=== PATIENT | male | born 1965 | race Caucasian/White ===

== ENCOUNTER → 2018-09-30 | Outpatient (CLI) | payer OTHER ==
--- NOTE | 2018-10-01 04:03 | REP ---
Clinical: Chronic obstructive pulmonary disease . Comparison: None . Technique: PA and lateral. Findings: The mediastinum and cardiac silhouette are normal. The lung lindsey are clear and without acute consolidation, effusion, or pneumothorax. The skeletal structures are intact and normal. Impression: 1. No acute cardiopulmonary process. Electronically Signed by Ayaz Modi MD 10/01/2018 03:55 A
== END ==
LOC: M RAD 15:50
PROVIDERS: ATTEND Internal Medicine Pulmonary Disease
DX: J44.9 Chronic obstructive pulmonary disease, unspecified (principal)

== ENCOUNTER 2024-06-16 09:30 | Day surgery (SDC) | payer OTHER ==
[~2024-06-16] VITALS: Ht 172.7 cm; Wt 116.0 kg
[~2024-06-16 09:30] MED LIST: CARV6.25 PO; CLOP75TA2 PO; FARX1TAB3 PO; GLIP5TAB20 PO; LISI10TA22 PO; LORA-243 PO; LYRI150C PO; METF10004 PO; NITR0.4S14 SL; OMEP1CAP73 PO; PANT40TA29 PO; ROSU20TA86 PO; SEMA2PEN SQ; STIO1AER INH; VENTAER INH; VITA-113 SL; VITATAB31 PO
[2024-06-16] MEDS ORDERED: propofoL 200 MG/20 ML VIAL As Ordered ONE (10:31)
[2024-06-16] MEDS ORDERED: LIDOCAINE 2% 100MG/5ML SDV (FOR ANES.) As Ordered ONE (10:31)
[2024-06-16 11:21] VITALS: TEMP 97.2
[2024-06-16 11:41] VITALS: BP 162/82; O2SAT 98
== END 2024-06-16 11:55 | disposition home or self-care (01) ==
LOC: M OPP 09:30
PROVIDERS: ATTEND Internal Medicine Gastroenterology
DX: Z12.11 Encounter for screening for malignant neoplasm of colon (principal); D12.4 Benign neoplasm of descending colon; K20.90 Esophagitis, unspecified without bleeding; R13.10 Dysphagia, unspecified; K64.8 Other hemorrhoids; K57.30 Diverticulosis of large intestine without perforation or abscess without bleeding; R12 Heartburn; Z86.0100 Personal history of colon polyps, unspecified; Z87.19 Personal history of other diseases of the digestive system; E11.9 Type 2 diabetes mellitus without complications; I25.10 Atherosclerotic heart disease of native coronary artery without angina pectoris; J44.89 Other specified chronic obstructive pulmonary disease; I10 Essential (primary) hypertension; I25.2 Old myocardial infarction; E78.00 Pure hypercholesterolemia, unspecified; Z79.899 Other long term (current) drug therapy; Z79.02 Long term (current) use of antithrombotics/antiplatelets; Z79.84 Long term (current) use of oral hypoglycemic drugs; Z79.85 Long-term (current) use of injectable non-insulin antidiabetic drugs; Z95.5 Presence of coronary angioplasty implant and graft; G47.30 Sleep apnea, unspecified; Z88.1 Allergy status to other antibiotic agents; Z88.8 Allergy status to other drugs, medicaments and biological substances; Z87.891 Personal history of nicotine dependence